=== PATIENT | female | born 1980 ===

== ENCOUNTER 2022-09-05 07:38 | Day surgery (SDC) | payer OTHER ==
[~2022-09-05] VITALS: Ht 157.5 cm; Wt 59.0 kg
[~2022-09-05 07:38] MED LIST: CRESTOR5 MG PO; LIPOFEN50 MG PO; SYNTHROID125 MCG PO
== END 2022-09-05 21:50 | disposition home or self-care (01) ==
LOC: CIR.AMB 07:38
PROVIDERS: ATTEND Specialist
DX: K80.10 Calculus of gallbladder with chronic cholecystitis without obstruction (principal); E78.5 Hyperlipidemia, unspecified; E03.9 Hypothyroidism, unspecified; E16.2 Hypoglycemia, unspecified; Z86.16 Personal history of COVID-19; Z20.822 Contact with and (suspected) exposure to COVID-19